=== PATIENT | male | born 1940 | race Hispanic/Latino ===

== ENCOUNTER 2019-05-16 07:25 | Inpatient (IN) | payer MEDICARE, OTHER ==
[2019-05-16 08:22] LABS: Basophils # (Auto) 0.1 K/mm3 (0.0-0.1); Eosinophils # (Auto) 0.1 K/mm3 (0.0-0.4); Hematocrit 39.1 % (35.5-45.6); Hemoglobin 13.5 gm/dl (11.8-15.2); Lymphocytes # (Auto) 1.3 K/mm3 (1.2-5.4); Lymphocytes % (Auto) 24.1 % (13.4-35.0); Mean Corpuscular HGB Conc 35 % (32-34); Mean Corpuscular Volume 95 fl (84-94); Monocytes # (Auto) 0.6 K/mm3 (0.0-0.8); Monocytes % (Auto) 11.2 % (0.0-7.3); Platelet Count 149 K/mm3 (140-440); Red Blood Count 4.13 M/mm3 (3.65-5.03); Red Cell Distribution Width 14.6 % (13.2-15.2)
[2019-05-16 08:38] LABS: INR 1.1 (0.87-1.13)
[2019-05-16] MEDS ORDERED: HEPARIN/NS 5000 UNIT/500ML 1,000 ML IR ONE (08:42)
[2019-05-16] MEDS ORDERED: VERAPAMIL 5 MG/2 ML INJ ONE (08:43)
[2019-05-16] MEDS ORDERED: LIDOCAINE (2%) 20 MG/1 ML VIAL 20 ML MDV INFILTRATI ONE (08:43)
[2019-05-16] MEDS ORDERED: HEPARIN 10,000 UNITS/10 ML VIAL ONE (08:43)
[2019-05-16] MEDS ORDERED: DOBUTamine/D5W 500 MG/250 ML 500 MG/250 ML BAG IV ONE (08:44)
[2019-05-16] MEDS ORDERED: NITROGLYCERIN SYRINGE 3 ML ONE (08:44)
[2019-05-16 09:06] LABS: BUN/Creatinine Ratio 18; Blood Urea Nitrogen 20 mg/dL (9-20); Calcium 9.5 mg/dL (8.4-10.2); Hemolysis Index 5
[2019-05-16] MEDS: SODIUM CHLORIDE 0.9% 500 ML 500 ML IV SCH ×3 (09:25→13:53)
[2019-05-16] MEDS ORDERED: fentaNYL 100 MCG/2 ML INJ ONE (09:53)
[2019-05-16] MEDS ORDERED: MIDAZOLAM 2 MG/2 ML INJ ONE (09:53)
[2019-05-16] MEDS ORDERED: PHENYLEPHRINE/NS 1,000 MCG/10 ML SYRINGE (OR USE) IV ONE (10:09)
--- NOTE | 2019-05-16 10:50 | Short Stay Summary ---
Short Stay Documentation Date of service: 05/16/19 - History H&P: obtained from office - Allergies and Medications Current Medications: Allergies naproxen sodium [From Aleve] Allergy (Verified 10/16/15 06:23) Hives Penicillins Adverse Reaction (Verified 10/16/15 06:23) Hives Home Medications Medication Instructions Recorded Confirmed Last Taken Type Phenytoin Sodium Extended 100 mg PO BID 10/16/15 05/16/19 05/16/19 05:00 History [Dilantin] 100 mg Apixaban [Eliquis] 5 mg PO BID 05/16/19 05/16/19 05/14/19 History 5 mg Aspirin EC [Halfprin EC] 81 mg PO DAILY 05/16/19 05/16/19 05/16/19 05:00 History 81 mg Atorvastatin [Lipitor] 40 mg PO DAILY 05/16/19 05/16/19 05/16/19 05:00 History 40 mg Digoxin [Lanoxin] 0.125 mg PO DAILY 05/16/19 05/16/19 05/16/19 05:00 History 0.125mg Furosemide [Lasix TAB] 40 mg PO DAILY 05/16/19 05/16/19 05/16/19 05:00 History 40 mg Metoprolol [Lopressor TAB] 25 mg PO TID 05/16/19 05/16/19 05/16/19 05:00 History 25 mg Sacubitril/Valsartan [Entresto 24 1 tab PO DAILY 05/16/19 05/16/19 05/16/19 05:00 History - 26 mg] 1 tab Spironolactone [Aldactone] 12.5 mg PO DAILY 05/16/19 05/16/19 05/16/19 05:00 History Active Medications Sodium Chloride (Nacl 0.9% 500 Ml) 500 mls @ 50 mls/hr IV DIRECT PAT Stop: 05/16/19 17:59 Last Admin: 05/16/19 10:00 Dose: 50 mls/hr Documented by: - Brief post op/procedure progress note Date of procedure: 05/16/19 Pre-op diagnosis: CAD; ICMP; Post-op diagnosis: same Procedure: LHC - see dictated cath report Anesthesia: local Estimated blood loss: none Condition: stable - Disposition Condition at discharge: Stable Disposition: [id number]/[place]-[id number] ANOTHER TYPE [facility] - Discharge Diagnoses (1) CAD (coronary artery disease) Status: Chronic (2) Hypertension Status: Chronic (3) Hyperlipidemia Status: Chronic (4) Ischemic cardiomyopathy Status: Chronic (5) Atrial fibrillation Status: Chronic (6) Aortic stenosis Status: Chronic Short Stay Discharge Plan Wound: open to air, keep clean and dry, per your surgeon's advice Follow up with: RYAN BRADY MD [Primary Care Provider] - 7 Days
[2019-05-16] MEDS ORDERED: HEPARIN/ 0.45% NACL DRIP 25,000 UNIT/500 ML BAG ONE (10:54)
--- NOTE | 2019-05-16 11:52 | Cardiac Catherization Report ---
PROCEDURE: Left heart catheterization with dobutamine stress done on 05/16/2019. CLINICAL INFORMATION: This is a 78-year-old gentleman with [id number] LV dysfunction, atrial fibrillation, recent tobacco abuse with known history of coronary artery disease, has suspected aortic stenosis on recent echocardiogram with known history of coronary artery disease with abnormal cardiac PET. Procedure was done under moderate sedation. Total sedation time was 30 minutes, started at 10:00 a.m., finished at 10:30 a.m. Procedure was done via the right radial artery, sterile technique, local anesthesia, 6-Lith[place]ian radial sheath inserted. Left system and JL3.5 catheter. Coronary findings, calcification, left main is a medium caliber vessel, mid to distal and has a 95% lesion of a calcified vessel. Then, LAD is a medium to large caliber vessel. It is patent with mild luminal irregularities, mid portion 60%. Diagonal 1 cehjf-rm-wqppwq caliber vessel, patent with mild luminal irregularities. Diagonal 2 small caliber vessel. OM3 is a small caliber vessel. Circumflex medium caliber, ostial 99% with CARLITOS 2 flow going to medium caliber OM1 that is patent with mild luminal irregularities. RCA engaged with JR4, is a large dominant vessel, ostial 80% lesion, diffuse disease, 10-20% in the mid to distal RCA, PDA, PLV are large caliber vessel, patent with mild luminal irregularities covers the lateral wall. LV gram, we were able to cross into the LV with a Glidewire and placed a Prescott catheter, which showed [id number] LV dysfunction, ejection fraction 25%. Initial aortic pressure was 91/57 mmHg, LV is 124 with an LVEDP of 20 mmHg, mean gradient was 26.5 mm of gradient. The patient infused with dobutamine at 10 mcg. Aortic pressure was 89/56 mm, LV is 120/20 mmHg with mean gradient of 29.2 mm of gradient and then increased to 20 mcg and aortic pressure was 78/49. LV is 120/21 mmHg with mean gradient 31 mmHg and at 30 mcg, aortic pressure was 72/52 with aortic is 120. LVEDP 118 mmHg, mean was 33 mmHg, so there was an increase in the gradient with dobutamine suggestive of a true aortic stenosis. Pulled out the Viktor catheter, there was no significant gradient and the patient's heart rate and blood pressure normalized with last blood pressure being 100/50. The patient denies any chest pain, shortness of breath. A 5-Lithuanian catheters all taken guidewire, 6-[place]ian radial sheath was discontinued. Radial band applied. No hematoma, no bleeding. SUMMARY: Left main distal calcified 95% LAD patent, mild irregularities, mid 60%. Diagonal 1 patent, circumflex ostial 99% with CARLITOS 1 flow. OM1, medium caliber vessel. RCA large, dominant vessel, ostial 80% with diffuse 20-30%. PDA, PLV large caliber vessel covers the lateral wall patent, mild irregularities. Qbqswoee-ez-jrzcdp LV dysfunction, EF 25-30% with moderate to severe aortic stenosis with increased gradient from 26.5 mmHg to 32.7 measuring up to 30 mcg of dobutamine. The patient will be transferred to [place] for bypass and valve replacement and discussed this with the patient and the patient's family in detail. JOB# [id number] KARL/NOLBERTO
[2019-05-16] MEDS ORDERED: HEPARIN/ 0.45% NACL DRIP 25,000 UNIT/500 ML BAG IV SCH (12:00)
[2019-05-16] MEDS ORDERED: SODIUM CHLORIDE 0.9% 1000 ML 1,000 ML ONE (14:17)
[2019-05-16] MEDS ORDERED: SODIUM CHLORIDE 0.9% 1000 ML 1,000 ML IV SCH ×2 (15:00)
[2019-05-16] MEDS ORDERED: NORepinephrine/NS 4 MG-250 ML 4 MG/250 ML BAG IV SCH (16:00)
[2019-05-16 18:01] VITALS: BP 96/57
[2019-05-16] MEDS ORDERED: oxyCODONE /ACETAMINOPHEN 5-325MG TAB PO PRN (18:02)
[2019-05-16] MEDS ORDERED: ONDANSETRON 4 MG/2 ML INJ IV PRN (18:02)
[2019-05-16] MEDS ORDERED: HYDROmorphone 1 MG/1 ML INJ IV PRN (18:02)
[2019-05-16] MEDS ORDERED: ACETAMINOPHEN 325 MG TAB PO PRN (18:02)
--- NOTE | 2019-05-16 18:02 | Event Note ---
Date: 05/16/19 See H/p in reports
[2019-05-16 18:12] LABS: INR 1.19 (0.87-1.13)
[2019-05-16 18:28] LABS: Partial Thromboplastin Time 191.3 Sec. (24.2-36.6)
[2019-05-16] MEDS ORDERED: FAMOTIDINE 20 MG/2 ML INJ IV SCH (22:00)
== END 2019-05-16 20:00 | disposition short-term general hospital (02) | DRG 287 ==
LOC: CATHLABREC 07:25 → CC1 18:03
PROVIDERS: ADMIT Internal Medicine; ATTEND Internal Medicine
PROC: 4A023N7 Measurement of Cardiac Sampling and Pressure, Left Heart, Percutaneous Approach (ICD-10-PCS; principal; 2019-05-16)
PROC: B2111ZZ Fluoroscopy of Multiple Coronary Arteries using Low Osmolar Contrast (ICD-10-PCS; 2019-05-16)
PROC: B2151ZZ Fluoroscopy of Left Heart using Low Osmolar Contrast (ICD-10-PCS; 2019-05-16)
DX: I25.10 Atherosclerotic heart disease of native coronary artery without angina pectoris (principal); I50.22 Chronic systolic (congestive) heart failure; I42.9 Cardiomyopathy, unspecified; E78.2 Mixed hyperlipidemia; F17.200 Nicotine dependence, unspecified, uncomplicated; I35.0 Nonrheumatic aortic (valve) stenosis; I48.91 Unspecified atrial fibrillation; Z95.5 Presence of coronary angioplasty implant and graft; Z88.8 Allergy status to other drugs, medicaments and biological substances; Z88.0 Allergy status to penicillin; Z79.82 Long term (current) use of aspirin; Z79.899 Other long term (current) drug therapy
CPT/HCPCS: 36415; 80048; 85025; 85520; 85610; 85730; 93005; 93010; 93458; 96367; 96368; G0378; C1751; C1769; C1894; J1250; J1644; J2250; J2370; J3010; J7030; J7040; Q9967